=== PATIENT | male | born 1955 | race African-American/Black ===

== ENCOUNTER 2023-08-19 11:49 | Emergency (ER) | payer MEDICARE ==
[~2023-08-19] VITALS: Ht 182.9 cm; Wt 78.0 kg
[2023-08-19 11:56] VITALS: TEMP 98.3; O2SAT 100
[2023-08-19] MEDS ORDERED: IOHEXOL-350 100 ML BOTTLE ONE ×2 (12:16→15:19)
[2023-08-19] MEDS ORDERED: HYDRALAZINE 20MG/ML VIAL IV ONE (12:30)
[2023-08-19] MEDS ORDERED: ASPIRIN 325MG EC TABLET PO ONE (12:45)
[2023-08-19 12:55] LABS: HEMATOCRIT. 44.1 % (42.0-52.0); HEMOGLOBIN. 14.6 g/dL (14.0-18.0); MEAN CORPUSCULAR HEMOGLOBIN 29.4 pg (28.0-32.0); MEAN CORPUSCULAR HGB CONC 33.1 g/dL (31.0-37.0); MEAN CORPUSCULAR VOLUME 88.6 fL (80.0-94.0); RED BLOOD CELL COUNT 4.97 mill/uL (4.7-6.1); RED CELL DISTRIBUTION WIDTH 14.7 % (11.6-14.6)
[2023-08-19 12:58] LABS: INR 1.1; PROTHROMBIN TIME 11.9 sec (9.6-11.0)
[2023-08-19 13:05] LABS: DIFFERENTIAL COMMENT 1
[2023-08-19] MEDS ORDERED: ASPIRIN 325MG EC TABLET PO NR (13:15)
[2023-08-19] MEDS ORDERED: HYDRALAZINE 20MG/ML VIAL IV NR (13:15)
[2023-08-19 13:22] LABS: INDEX HEMOLYSI 1 (1-3); INDEX ICTERIC 1 (1-4); INDEX LIPEMIC 1 (1-3); MEAN PLATELET VOLUME 8.6 fl (7.4-10.4); PLATELET 226 x1000/uL (130-400); PLATELET ESTIMATE NORMAL
[2023-08-19 13:33] LABS: ETHANOL BLOOD < 10 mg/dL (<10); TROPONIN I HIGH SENSITIVITY 15 ng/L (<78)
[2023-08-19 14:23] LABS: CALCIUM 8.6 mg/dL (8.5-10.1); CARBON DIOXIDE 24 mEq/L (21-32); CHLORIDE 108 mEq/L (98-107); CREATININE 1.1 mg/dL (0.6-1.3); GLUCOSE 100 mg/dL (70-105); POTASSIUM 4.7 mEq/L (3.5-5.1); PROTEIN TOTAL 7.4 g/dL (6.0-8.3); SODIUM 137 mEq/L (136-145); UREA NITROGEN BLOOD 27 mg/dL (7-21)
[2023-08-19 14:24] LABS: ALANINE AMINOTRANSFERASE 59 IU/L (13-61); ALBUMIN 3.6 g/dL (3.4-5.0); ASPARTATE AMINOTRANSFERASE 48 IU/L (15-37); BILIRUBIN TOTAL 0.6 mg/dL (0.1-1.0)
[2023-08-19 14:42] VITALS: BP 152/82; PULSE 97; RESP 18
== END 2023-08-19 15:18 | disposition short-term general hospital (02) ==
LOC: ER 11:49
DX: I63.9 Cerebral infarction, unspecified (principal); I10 Essential (primary) hypertension; E78.00 Pure hypercholesterolemia, unspecified
CPT/HCPCS: 80053; 80320; 82962; 85025; 85610; 84484; 36415; 71045; 70496; 70498; 70450; 93005; 96374; 99291; Q9967; J0360; G0480